=== PATIENT | male | born 2000 | race Caucasian/White ===

== ENCOUNTER 2022-10-20 05:39 | Emergency (ER) | payer OTHER, MEDICAID, SELFPAY ==
[2022-10-20 05:41] VITALS: BP 153/81; PULSE 79; RESP 18; TEMP 36.8; O2SAT 99
[2022-10-20] MEDS: Lidocaine 2% (20 ml mdv) 20 ML Vial INFILT (06:04)
[2022-10-20] MEDS: Diphth,Pertuss(Acell),Tet Vac 0.5 ML Vial IM (06:04)
--- NOTE | 2022-10-20 06:27 | EDS_ITS ---
HPI History of Present Illness Chief Complaint: Laceration Informant: patient Narrative Narrative: Patient is a 22-year-old male with no significant past medical history who is right-hand dominant. He reports that he was using a gill box operator approximately 20 minutes ago when he excellently cut his left index finger. He states that he has no numbness tingling or weakness but was concerned that he may need stitches based on the laceration and therefore comes in for evaluation [facility] [place] PFS Medical History no medical history Home Medications NK 10/20/22 [History Last Taken Unknown] Allergy/AdvReac Type Severity Reaction Status Date / Time No Known Allergies Allergy Verified 10/20/22 05:43 Social History Smoking Status: Never smoker ROS ROS ED Constitutional Constitutional ED: Denies chills or fever(s) ENT ENT ED: Denies sore throat Cardiovascular Cardiovascular: Denies chest pain Respiratory/Chest Respiratory/Chest: Denies cough or dyspnea Gastrointestinal Gastrointestinal: Denies abdominal pain, diarrhea, nausea or vomiting Genitourinary Genitourinary ED: Denies dysuria Musculoskeletal Musculoskeletal: Reports other Details: Positive left index finger pain ; Denies myalgias Integumentary Reports other Details: Positive left index finger laceration ; Denies rash Neurologic Neurologic: Denies headache(s), paresthesias or weakness Hematologic/Lymphatic Hematologic/Lymphatic: Denies easy bleeding or easy bruising EXAM Physical Exam Const Vital Signs: 10/20/22 05:41 Temperature 98.2 F Temperature Source Temporal Pulse Rate 79 Respiratory Rate 18 Blood Pressure 153/81 H Blood Pressure Mean 105 Pulse Ox 99 Oxygen Delivery Method Room Air Positive well nourished, well developed and obese General Appearance ED: well developed Nutritional Appearance: obese Eyes PERRL and EOMs intact bilaterally Neck supple Resp normal respiratory effort and clear to auscultation bilaterally Cardio regular rate and regular rhythm Extremity Extremity Narrative: Left upper extremity is neurovascular intact; AIN/PIN are intact and normal. No obvious bony deformity or joint effusion. No ligamentous or tendon injury noted. No retained foreign body. The wound is 1.5 cm in length linear subcutaneous layer deep with minimal ooze of blood and over top the DIP joint space. Neuro oriented x3, CN's II-XII intact bilaterally and no sensory deficits noted Sensorium / Orientation: alert Psych mental status grossly normal Skin no rashes or lesions noted Skin Narrative: Laceration to the left index finger as documented above MDM MDM MDM Narrative Medical decision making narrative: Patient presented to the ER with a simple laceration to his left index. He did not have any signs of ligamentous or tendon injury or retained foreign body or arterial involvement. Therefore there is no need for work-up. Patient's tetanus status was updated. As the wound did cross the DIP joint this is a high area of tension and will need sutures and Dermabond in order to close the wound. This was performed as documented below. After the wound was closed as he has no signs of infection ligamentous tendon or arterial injury he is otherwise safe for discharge Patient had the left index finger cleaned with chlorhexidine. It was anesthetized with 2 mL of 2% lidocaine without epinephrine in local fashion. The wound was copiously irrigated with normal saline. The wound was then closed with six 4-0 Ethilon sutures in simple interrupted fashion. Patient tolerated the procedure well without complication. History & Record Review Discussion w/independent historian: Patient Discharge Plan Triage Chief Complaint: Laceration ED Provider: Hayder [facility] Dx/Rx/DC Orders Clinical Impression: Laceration of left index finger Instructions: ED Laceration, Hand: All Closures Prescriptions: No Action NK Primary Care Provider: Care Physician,No Primary Referrals: Patti Davila MD [Med Staff - Electronic Equipment Installer] - Care Physician,No Primary [Primary Care Provider] - Activity Restrictions/Additional Instructions: Please see your family doctor or return to the ER in 7 to 10 days for suture removal Disposition Disposition: Home, Self Care
== END 2022-10-20 06:41 | disposition home or self-care (01) ==
LOC: ED 06:38
PROVIDERS: Emergency Provider Emergency Medicine; Visit Provider Emergency Medicine
DX: S61.211A Laceration without foreign body of left index finger without damage to nail, initial encounter (principal); E66.9 Obesity, unspecified; W27.8XXA Contact with other nonpowered hand tool, initial encounter; Z23 Encounter for immunization
CPT/HCPCS: 12001; 90471; 90715; 99283

== ENCOUNTER 2024-03-17 07:53 | Emergency (ER) | payer SELFPAY ==
[2024-03-17 07:53] VITALS: BP 144/90; PULSE 85; RESP 14; TEMP 36.6; O2SAT 100; BMI 42.2
--- NOTE | 2024-03-17 08:15 | ED.VIS.BACK ---
HPI History of Present Illness Chief Complaint: Back Informant: patient Onset/Context/Timing Onset: Yesterday Context: Sudden Onset Timing: Continuous Quality: Sharp Location: Lumbar Worsened by: improves with - (Ambulation and sitting upright) Relieved by: Remaining Still Associated Symptoms Associated Symptoms: Negative for Numbness, Tingling, Radiation to Right Leg, Radiation to Left Leg, Fever, Abdominal Pain, Dysuria, Unable to Ambulate, Unable to Transfer, Urinary Retention, Urinary Incontinence, Constipation or Fecal Incontinence Narrative Narrative: Patient presents with low back pain that began yesterday. Patient states it is sharp. Patient states it is worse whenever he ambulates and whenever he sits upright. Patient states it is better when he is able to rest and lay flat. Patient states the pain is constant. The patient denies any radiation of the pain. Patient denies any paresthesias or weakness. Patient denies any bowel or bladder changes. Patient denies any saddle anesthesia. Patient denies any direct trauma or injury. PFSH PFS Medical History no medical history no medical history Home Medications ?Medication ?Instructions ?Recorded ?Last Taken ?Type NK 10/20/22 Unknown History Allergy/AdvReac Type Severity Reaction Status Date / Time No Known Allergies Allergy Verified 03/17/24 07:53 Surgical History (Updated 03/17/24 @ 09:[address] Angel Luis Paz DO) Hx of eye surgery Social History Smoking Status: Never smoker ROS ROS ED Constitutional Constitutional ED: Denies chills or fever(s) Eyes Eyes: Denies blurry vision or change in vision ENT ENT ED: Denies rhinorrhea or sore throat Cardiovascular Cardiovascular: Denies chest pain or palpitations Respiratory/Chest Respiratory/Chest: Denies cough or dyspnea Gastrointestinal Gastrointestinal: Denies nausea or vomiting Genitourinary Genitourinary ED: Denies dysuria or hematuria Musculoskeletal Musculoskeletal: Reports back pain; Denies neck pain Integumentary Denies abscess or rash Neurologic Neurologic: Denies headache(s) or weakness Allergic/Immunologic Allergic/Immunologic ED: Denies mouth swelling or urticaria EXAM Physical Exam Const Vital Signs: 03/17/24 07:53 Temperature 97.8 F Temperature Source Oral Pulse Rate 85 Respiratory Rate 14 Blood Pressure 144/90 H Blood Pressure Mean 108 Pulse Ox 100 Oxygen Delivery Method Room Air Positive well nourished and well developed General Appearance ED: well developed and NAD HEENT Reports moist mucous membranes Neck supple and no JVD Back/Spine normal to inspection Back/Spine Narrative: There is tenderness over the lower lumbar spine in the midline. There is no edema or ecchymosis. There is no bony crepitance or step-off. Range of motion is slightly limited in all motions of the lumbar spine secondary to pain. Straight leg raises were negative bilaterally. Strength is 5/5 bilaterally in the lower extremities. There are no sensory deficits noted. Deep tendon reflexes are 2+/4 bilaterally in the lower extremities. Lumbar Spine / Lower Back: ROM limited and straight leg raise negative bilaterally Extremity normal to inspection General Extremety ED: Negative for edema or tenderness General Extremity: Negative for edema Neuro oriented x3 and no sensory deficits noted Sensorium / Orientation: alert Motor Exam: strength 5/5 throughout Deep Tendon Reflexes: Rt Patellar (L4): 2+, Lt Patellar (L4): 2+, Rt Ankle (S1): 2+ and Lt Ankle (S1): 2+ Deep Tendon Reflexes Back: Rt Patellar (L4): 2+, Lt Patellar (L4): 2+, Rt Ankle (S1): 2+ and Lt Ankle (S1): 2+ MDM MDM MDM Narrative Medical decision making narrative: Differential diagnosis includes lumbosacral strain, compression fracture, spondylolisthesis. X-rays of the lumbar spine will be obtained to assess for fracture and spondylolisthesis. Radiography X-Ray: LS SPine, Read by ED Physician, Read by Radiologist, No Fracture and Normal Bony Alignment Diagnostic Testing: Clinical Impression(s) from Imaging Studies Lumbar Spine X-Ray 03/17/24 08:20 IMPRESSION: Normal x-ray examination of the lumbar spine. Electronically Signed: Arcenio Rodriguez MD at 9:05 EDT Reading Location ID and State: [facility] / [place] , Service support , X-rays of the lumbar spine were obtained. There prior 2 views. On my independent interpretation, there is no acute fracture or spondylolisthesis. Radiologist also interpreted the x-rays and agrees. Treatment and Re-Evaluation Narrative: Patient was given a dose of Naprosyn here. Patient was advised of his findings. Patient was given a prescription for Naprosyn. Patient was instructed to use ice to his low back. Patient was instructed to follow-up with his primary care physician in 5 to 7 days. Patient understood and was agreeable with the plan. All questions were answered. Discharge Plan Triage Chief Complaint: Back ED Provider: Angel Luis Paz Dx/Rx/DC Orders Clinical Impression: Acute lumbosacral myofascial strain, Body mass index (BMI) of 40.0 to 44.9 in adult Instructions: ED Back Sprain/Strain Prescriptions: No Action NK Stand Alone Forms: Work Status Form Primary Care Provider: Care Physician,No Primary Referrals: Patti Davila MD [Med Staff - Suction Plate Roller Hand] - 5-7 Days Care Physician,No Primary [Primary Care Provider] - Print Language: Faroese Disposition Disposition: Home, Self Care
[2024-03-17] MEDS: Naproxen 500 MG Tablet PO (08:18)
--- NOTE | 2024-03-17 08:20 | RAD_ITS ---
STUDY: X-RAY - LUMBAR SPINE REASON FOR EXAM: Male, 23 years old. Injury/Pain TECHNIQUE: 2 view(s) of the lumbar spine were obtained. COMPARISON: None FINDINGS: Normal lumbar lordosis. There is no substantial scoliosis. There is a normal alignment of the vertebrae. Normal vertebral bodies and endplates. Normal disc space heights. There is no demonstrated fracture or compression deformity is present. The soft tissue structures are unremarkable. RAD/Lumbar Spine 2 or 3 Views IMPRESSION: Normal x-ray examination of the lumbar spine. Electronically Signed: Arcenio Rodriguez MD at 9:05 EDT ,
[2024-03-17 09:57] VITALS: BP 134/78; PULSE 67; RESP 18; TEMP 36.4; O2SAT 99
== END 2024-03-17 09:58 | disposition home or self-care (01) ==
PROVIDERS: Emergency Provider Emergency Medicine; Visit Provider Emergency Medicine
DX: S39.012A Strain of muscle, fascia and tendon of lower back, initial encounter (principal); X58.XXXA Exposure to other specified factors, initial encounter
CPT/HCPCS: 72100; 99282